=== PATIENT | male | born 1960 | race Caucasian/White ===

== ENCOUNTER 2016-11-18 14:56 | Emergency (ER) | payer SELFPAY ==
[~2016-11-18] VITALS: Ht 172.7 cm; Wt 77.2 kg
[~2016-11-18 14:56] MED LIST: TAB-TAB; VITA100T15; VITA100T5; Z.0.NO CURRENT MEDS
--- NOTE | 2016-11-18 15:30 | PD ---
HPI Chief Complaint: alcohol intoxication Time Seen by Provider: 15:30 Travel History International Travel<30 days: No Contact w/Intl Traveler<30days: No History of Present Illness HPI 56 year old male with PMH of COPD and chronic alcohol abuse presents to the ED via EMS for evaluation of bilateral knee pain and head pain after mechanical fall. The patient states that his right knee gave way today, causing him to fall on the left knee and strike his head. He is unsure if he lost consciousness. On presentation he complains of headache, dizziness, nausea and bilateral knee pain. He has been ambulatory since the accident. He is intoxicated and unable to provide any other meaningful history. PFSH Past Medical History Asthma: Yes Depression: Yes Psychiatric: Yes (ETOH ABUSE) Respiratory: Yes (COPD) Past Surgical History Genitourinary Surgery: Yes (URETHRAL DILATION) Oral Surgery: Yes Social History Alcohol Use: Yes (6 PK BEER / DAY, alcoholism) Tobacco Use: Yes (HE SMOKE 1 1/2 PACK DAILY.) Substance Use: No Allergies-Medications (Allergen,Severity, Reaction): Coded Allergies: No Known Allergies (Verified Allergy, Mild, 09/09/06) Reported Meds & Prescriptions Reported Meds & Active Scripts Active Reported Multivitamin (Multivitamins) 1 Tab Tab Vitamin C (Ascorbic Acid) 100 Mg Tab Vitamin B12 (Cyanocobalamin) 100 Mcg Tab No Current Meds (Miscellaneous Medication) Misc Review of Systems ROS Limitations: Intoxication Except as stated in HPI: all other systems reviewed are Neg Physical Exam Exam Limitations: Intoxication Narrative GENERAL: Well-nourished, well-developed shirtless, disheveled, intoxicated white male in no acute distress. SKIN: Focused skin assessment warm/dry. Multiple tattoos. There are superficial abrasions on the lateral aspect of the left knee. HEAD: Normocephalic. Atraumatic. No tenderness to palpation of the skull bones. No bony step-offs. EYES: No scleral icterus. No injection or drainage. PERRLA. NECK: Supple, trachea midline. No JVD or lymphadenopathy. No midline tenderness to palpation. Patient retains full, active range of motion of the neck. CARDIOVASCULAR: Regular rate and rhythm without murmurs, gallops, or rubs. 2+ DP and radial pulses bilaterally. RESPIRATORY: Breath sounds equal bilaterally. Mild end expiratory wheeze in the left lung long. No accessory muscle use. GASTROINTESTINAL: Abdomen soft, non-tender, nondistended. Active bowel sounds. MUSCULOSKELETAL: No cyanosis, or edema. Right lower extremity: Tender to palpation of the joint lines. Patient is able to flex to approximately 45 and extend beyond 0. States this is his normal. Left lower extremity: No tenderness to palpation or limitations to range of motion. NEURO: No focal neuro deficits. BACK: Nontender without obvious deformity. No CVA tenderness. Data Data Last Documented VS Vital Signs Date Time Temp Pulse Resp B/P Pulse Ox O2 Delivery O2 Flow Rate FiO2 11/18/16 19:42 78 16 123/77 98 11/18/16 15:58 [address] Cerv Spine W/O Contrast (11/18/16 15:51) Ct Brain W/O Iv Contrast(Rout) (11/18/16 15:51) Knee, Complete (4vws) (11/18/16 15:51) Ice/Cold Pack (11/18/16 15:51) Complete Blood Count With Diff (11/18/16 15:51) Comprehensive Metabolic Panel (11/18/16 15:51) Alcohol (Ethanol) (11/18/16 15:51) Urinalysis - C+S If Indicated (11/18/16 15:51) Iv Access Insert/Monitor (11/18/16 15:51) Sodium Chlor 0.9% 1000 Ml Inj (Ns 1000 M (11/18/16 16:00) Labs Laboratory Tests Test 11/18/16 11/18/16 15:50 16:50 Urine Color LIGHT-YELLOW Urine Turbidity CLEAR Urine pH 5.0 Urine Specific [place] 1.005 Urine Protein NEG mg/dL Urine Glucose (UA) NEG mg/dL Urine Ketones NEG mg/dL Urine Occult Blood NEG Urine Nitrite NEG Urine Bilirubin NEG Urine Urobilinogen LESS THAN 2.0 MG/DL Urine Leukocyte Esterase NEG Urine RBC LESS THAN 1 /hpf Urine WBC LESS THAN 1 /hpf Urine Mucus FEW /lpf Microscopic Urinalysis Comment CULT NOT INDICATED White Blood Count 7.2 TH/MM3 Red Blood Count 4.13 MIL/MM3 Hemoglobin 12.8 GM/DL Hematocrit 36.8 % Mean Corpuscular Volume 88.9 FL Mean Corpuscular Hemoglobin 30.9 PG Mean Corpuscular Hemoglobin 34.8 % Concent Red Cell Distribution Width 14.3 % Platelet Count 270 TH/MM3 Mean Platelet Volume 8.5 FL Neutrophils (%) (Auto) 61.5 % Lymphocytes (%) (Auto) 32.3 % Monocytes (%) (Auto) 3.4 % Eosinophils (%) (Auto) 2.3 % Basophils (%) (Auto) 0.5 % Neutrophils # (Auto) 4.4 TH/MM3 Lymphocytes # (Auto) 2.3 TH/MM3 Monocytes # (Auto) 0.2 TH/MM3 Eosinophils # (Auto) 0.2 TH/MM3 Basophils # (Auto) 0.0 TH/MM3 CBC Comment DIFF FINAL Differential Comment Sodium Level 141 MEQ/L Potassium Level 4.0 MEQ/L Chloride Level 107 MEQ/L Carbon Dioxide Level 22.7 MEQ/L Anion Gap 11 MEQ/L Blood Urea Nitrogen 14 MG/DL Creatinine 0.80 MG/DL Estimat Glomerular Filtration 101 ML/MIN Rate Random Glucose 59 MG/DL Calcium Level 8.2 MG/DL Total Bilirubin 0.2 MG/DL Aspartate Amino Transf 39 U/L (AST/SGOT) Alanine Aminotransferase 34 U/L (ALT/SGPT) Alkaline Phosphatase 81 U/L Total Protein 6.7 GM/DL Albumin 3.7 GM/DL Ethyl Alcohol Level 345 MG/DL MDM Medical Decision Making Medical Screen Exam Complete: Yes Emergency Medical Condition: Yes Differential Diagnosis Acute alcohol intoxication versus chronic alcoholism versus internal duration of the knee versus chronic knee pain versus ICH versus skull fracture versus other Narrative Course 56 year old male with PMH of COPD and chronic alcohol abuse presents to the ED via EMS for evaluation of bilateral knee pain and head pain after mechanical fall. The patient states that his right knee gave way today, causing him to fall on the left knee and strike his head. He is unsure if he lost consciousness. On presentation he complains of headache, dizziness, nausea and bilateral knee pain. He has been ambulatory since the accident. He is intoxicated and unable to provide any other meaningful history. Vitals reviewed. Physical exam reveals an intoxicated, shirtless, disheveled white male in no acute distress. Superficial abrasion over the lateral aspect the knee. Head is cephalic and atraumatic. There is no midline tenderness to palpation of the neck. He retained full, active range of motion. No appreciable M/R/G. There is mild end respiratory wheezes in the left lung long. Abdomen soft and nontender. The right lower extremity is tender to palpation of the joint lines with some limitation to ROM which the patient states is his normal. No focal neural deficits. CBC: Unremarkable CMP: Unremarkable UA: No culture indicated EtOH: 345 X-ray of the right knee: Unremarkable CT of the head and cervical spine: No acute findings Patient will be allowed to sleep it off then reevaluated before discharge. Upon reevaluation the patient is clothed, demonstrates a normal gait, asks for discharge and a bus pass. The patient is instructed to seek outpatient treatment for his chronic alcoholism. He is stable and discharged home. Diagnosis Primary Impression: Acute alcohol intoxication with alcoholism Qualified Code: F10.220 - Acute alcohol intoxication with alcoholism, uncomplicated Referrals: [facility] (Out patient) Additional Instructions: Seek outpatient treatment for your chronic alcoholism. Return to the ED for any urgent or emergent medical condition. Disposition: 01 DISCHARGE HOME Condition: Stable Shahida Mike November 18, 2016 15:30
[2016-11-18 15:58] VITALS: BP 102/62; PULSE 81; RESP 14; TEMP 97.7; O2SAT 94
[2016-11-18] MEDS ORDERED: SODIUM CHLOR 0.9% 1000 ML INJ 1,000 ML IV ONE (16:00)
--- NOTE | 2016-11-18 16:37 | RADRPT ---
EXAM DATE/TIME: 11/18/2016 16:07 [facility] COMPARISON: No previous studies available for comparison. INDICATIONS : Right knee pain after fall. MEDICAL HISTORY : None. SURGICAL HISTORY : None. ENCOUNTER: Initial ACUITY: 1 day PAIN SCORE: 10/10 LOCATION: Right knee. FINDINGS: Four view examination of the right knee demonstrates no evidence of fracture or dislocation. Bony mi neralization is normal. The articular surfaces are intact. The suprapatellar soft tissues have a no rmal configuration. CONCLUSION: Unremarkable examination of the right knee. Jorge Villegas MD on November 18, 2016 at 16:34 Board Certified Radiologist. This report was verified electronically.
[2016-11-18 16:46] LABS: BLOOD, URINE NEG (NEG); GLUCOSE,URINE NEG (NEG); KETONE, URINE NEG (NEG); MUCUS URINE FEW /lpf (OCC); NITRITE,URINE NEG (NEG); URINE COLOR LIGHT-YELLOW (YELLW/STRAW)
[2016-11-18 16:48] LABS: COMMENT (UR) CULT NOT INDICATED; CULTURE IF INDICATED CULT NOT INDICATED
[2016-11-18 17:15] LABS: AUTOMATED NEUTROPHIL # 4.4 TH/MM3 (1.8-7.7); BASOPHIL % 0.5 % (0.0-2.0); EOSINOPHIL # 0.2 TH/MM3 (0-0.4); EOSINOPHIL % 2.3 % (0.0-4.0); HEMATOCRIT 36.8 % (39.0-51.0); HEMO FLAGS DIFF FINAL; LYMPH % 32.3 % (9.0-44.0); LYMPHOCYTE # 2.3 TH/MM3 (1.0-4.8); MEAN CELL VOLUME 88.9 FL (80.0-100.0); MEAN CORPUSCULAR HEMOGLOBIN 30.9 PG (27.0-34.0); MEAN CORPUSCULAR HGB CONC 34.8 % (32.0-36.0); MONO % 3.4 % (0.0-8.0); NEUT % 61.5 % (16.0-70.0); PLATELET COUNT 270 TH/MM3 (150-450); RED BLOOD COUNT 4.13 MIL/MM3 (4.50-5.90); RED CELL DISTRIBUTION WIDTH 14.3 % (11.6-17.2); WHITE BLOOD COUNT 7.2 TH/MM3 (4.0-11.0)
--- NOTE | 2016-11-18 17:33 | RADRPT ---
EXAM DATE/TIME: 11/18/2016 17:21 [facility] COMPARISON: No previous studies available for comparison. INDICATIONS : Trauma, unknown injury. RADIATION DOSE: 36.81 CTDIvol (mGy) MEDICAL HISTORY : None SURGICAL HISTORY : None. ENCOUNTER: Initial ACUITY: 1 day PAIN SCALE: Non-responsive LOCATION: cranial TECHNIQUE: Multiple contiguous axial images were obtained of the head. Using automated exposure control and adj ustment of the mA and/or kV according to patient size, radiation dose was kept as low as reasonably a chievable to obtain optimal diagnostic quality images. FINDINGS: There is patchy mild diminished attenuation and deep white matter, nonspecific. No evidence of intrac ranial mass or hemorrhage. There is nothing to suggest acute infarction. The extracranial structures are benign intact. CONCLUSION: No acute cranial findings. Patchy mild white matter disease. Jorge Villegas MD on November 18, 2016 at 17:30 Board Certified Radiologist. This report was verified electronically.
--- NOTE | 2016-11-18 17:38 | RADRPT ---
EXAM DATE/TIME: 11/18/2016 17:21 [facility] COMPARISON: No previous studies available for comparison. INDICATIONS : Trauma, unknown injury. RADIATION DOSE: 25.85 CTDIvol (mGy) MEDICAL HISTORY : None SURGICAL HISTORY : None. ENCOUNTER: Initial ACUITY: 1 day PAIN SCALE: Non-responsive LOCATION: neck TECHNIQUE: Volumetric scanning of the cervical spine was performed. Multiplanar reconstructions in the sagittal, coronal and oblique axial planes were performed. Using automated exposure control and adjustment o f the mA and/or kV according to patient size, radiation dose was kept as low as reasonably achievable to obtain optimal diagnostic quality images. FINDINGS: Cervical spine alignment is notable for slight retrolisthesis C5 relative to C6. There is disc space narrowing at multiple levels and small vertebral body endplate osteophytes present. There is no evide nce of fracture. No significant bony canal or foraminal compromise is present. There are degenerative arthritic changes in the posterior facet joints at multiple levels. There is no evidence of paraspin al hematoma. CONCLUSION: Degenerative changes. No evidence of acute bony injury to cervical spine Jorge Villegas MD on November 18, 2016 at 17:34 Board Certified Radiologist. This report was verified electronically.
[2016-11-18 18:24] LABS: ALT (GPT) 34 U/L (12-78); ANION GAP 11 MEQ/L (5-15); AST (GOT) 39 U/L (15-37); BICARBONATE 22.7 MEQ/L (21.0-32.0); BLOOD UREA NITROGEN 14 MG/DL (7-18); CHLORIDE 107 MEQ/L (98-107); GLOMERULAR FILTRATION RATE 101 ML/MIN (>89); SODIUM (NA) 141 MEQ/L (136-145)
[2016-11-18 18:29] LABS: ALKALINE PHOSPHATASE 81 U/L (45-117); TOTAL BILIRUBIN ADULT 0.2 MG/DL (0.2-1.0)
[2016-11-18 19:42] VITALS: BP 123/77
== END 2016-11-18 19:55 | disposition home or self-care (01) ==
LOC: NEDAMB 14:56
DX: F10.229 Alcohol dependence with intoxication, unspecified (principal); S80.212A Abrasion, left knee, initial encounter; R51 Headache; R42 Dizziness and giddiness; R11.0 Nausea; W18.39XA Other fall on same level, initial encounter; Y93.9 Activity, unspecified; Y92.9 Unspecified place or not applicable; Y99.9 Unspecified external cause status
CPT/HCPCS: 70450; 72125; 73564; 80053; 80307; 81001; 85025; 96360; 99284; J7030

== ENCOUNTER 2017-03-05 21:24 | Emergency (ER) | payer OTHER ==
[~2017-03-05] VITALS: Ht 172.7 cm; Wt 75.0 kg
[2017-03-05 21:43] VITALS: BP 140/90; PULSE 80; RESP 16
--- NOTE | 2017-03-05 21:45 | PD ---
Physical Exam Date Seen by Provider: Mar 05, 2017 Time Seen by Provider: 21:42 Narrative 56 YOWM C/O BACK PAIN WITH L LEG GIVING OUT. NO BOWEL OR BLADDER CHANGES. PAIN 04/29. NO H/O BACK PAIN VS NOTED WAITING BED PLACEMENT MDM Supervised Visit with BO: Vikash Chambers Mar 05, 2017 21:45
[2017-03-05 21:55] VITALS: TEMP 98.6
[2017-03-05] MEDS ORDERED: NAPR500T PO (21:56)
[2017-03-05] MEDS ORDERED: BACL10TA PO (21:56)
--- NOTE | 2017-03-05 21:59 | PD ---
HPI Chief Complaint: Back/ Neck Pain or Injury Time Seen by Provider: 21:48 Travel History International Travel<30 days: No Contact w/Intl Traveler<30days: No Traveled to known affect area: No History of Present Illness HPI This is a 56-year-old male who presents for evaluation of lower back pain, radiating down the left leg. He reports that he has had this pain for 12 years but today the pain was worse. He reports that he also has a left knee meniscal injury which occasionally locks up and causes him to fall. He reports that this occurred today when he was walking and this seems to have exacerbated his chronic lower back pain. He denies any bowel or bladder incontinence, saddle anesthesia, abdominal pain, nausea or vomiting. He has no other complaints at this time. [facility] Past Medical History Asthma: Yes Depression: Yes Psychiatric: Yes (ETOH ABUSE) Respiratory: Yes (COPD) Past Surgical History Genitourinary Surgery: Yes (URETHRAL DILATION) Oral Surgery: Yes Social History Alcohol Use: Yes (6 PK BEER / DAY, alcoholism) Tobacco Use: Yes (HE SMOKE 1 1/2 PACK DAILY.) Substance Use: No Allergies-Medications (Allergen,Severity, Reaction): Coded Allergies: No Known Allergies (Verified , 03/05/17) Reported Meds & Prescriptions Reported Meds & Active Scripts Active Reported Multivitamin (Multivitamins) 1 Tab Tab Vitamin C (Ascorbic Acid) 100 Mg Tab Vitamin B12 (Cyanocobalamin) 100 Mcg Tab No Current Meds (Miscellaneous Medication) Misc Review of Systems Except as stated in HPI: all other systems reviewed are Neg Physical Exam Narrative GENERAL: Well-developed well-nourished male in no acute distress SKIN: Warm and dry. HEAD: Atraumatic. Normocephalic. EYES: Pupils equal and round. No scleral icterus. No injection or drainage. ENT: No nasal bleeding or discharge. Mucous membranes pink and moist. NECK: Trachea midline. No JVD. CARDIOVASCULAR: Regular rate and rhythm. No murmur appreciated. RESPIRATORY: No accessory muscle use. Clear to auscultation. Breath sounds equal bilaterally. GASTROINTESTINAL: Abdomen soft, non-tender, nondistended. Hepatic and splenic margins not palpable. No palpable pulsatile masses. No flank or periumbilical ecchymosis MUSCULOSKELETAL: No obvious deformities. There is no tenderness to palpation along the cervical thoracic or lumbar midline spine. 5 out of 5 muscle strength flexion, leg flexion and extension, dorsi and plantar flexion bilaterally. No lower extremity edema. NEUROLOGICAL: Awake and alert. No obvious cranial nerve deficits. Motor grossly within normal limits. Normal speech. PSYCHIATRIC: Appropriate mood and affect; insight and judgment normal. Data Data Last Documented VS Vital Signs Date Time Temp Pulse Resp B/P Pulse Ox O2 Delivery O2 Flow Rate FiO2 03/05/17 21:55 98.6 03/05/17 21:43 80 16 140/90 Orders Ketorolac Inj (Toradol Inj) (03/05/17 22:00) Orphenadrine Inj (Norflex Inj) (03/05/17 22:00) [facility] Medical Decision Making Medical Screen Exam Complete: Yes Emergency Medical Condition: Yes Medical Record Reviewed: Yes Differential Diagnosis Herniated nucleus pulposus, compression fracture, degenerative disc disease, lumbar strain, spasm, aortic dissection Narrative Course 56-year-old male who reports chronic lower back pain for 12 years, reports that today he was walking in his left knee locked up on him and caused him to fall. He now is worse lower back pain and usual and it radiates down the left leg. Physical examination is reassuring. He has no lower extremity weakness. His abdomen is soft and nontender. I don't suspect spinal cord injury or aortic dissection. I suspect an exacerbation of his chronic lower back pain with lumbosacral radiculopathy. The patient discharged with a short course of NSAIDs and muscle relaxants. Diagnosis Primary Impression: Lumbosacral radiculopathy Additional Instructions: Medication as needed. Follow-up with primary care physician next week. Return for any emergent medical conditions. Med/Other Pt SpecificInfo: Prescription(s) given Scripts Naproxen 500 Mg [id number] Mg PO BID 7 Days Ref 0 Prov:Talon Buck MD 03/05/17 Baclofen 10 Mg Tab10 Mg PO Q8HR PRN (MUSCLE SPASM) 7 Days Ref 0 Prov:Talon Buck MD 03/05/17 Disposition: 01 DISCHARGE HOME Condition: Stable Carlos Tong Mar 05, 2017 21:59
[2017-03-05] MEDS ORDERED: ORPHENADRINE INJ 60 MG/2 ML AMP IM ONE (22:00)
[2017-03-05] MEDS ORDERED: KETOROLAC TROMETHAMINE 60 MG/2 ML (IM) VIAL IM ONE (22:00)
== END 2017-03-05 22:15 | disposition home or self-care (01) ==
LOC: NEPK 21:24
DX: M54.17 Radiculopathy, lumbosacral region (principal); J44.9 Chronic obstructive pulmonary disease, unspecified; F17.210 Nicotine dependence, cigarettes, uncomplicated
CPT/HCPCS: 96372; 99284; J1885; J2360

== ENCOUNTER 2017-03-18 09:15 | Emergency (ER) | payer OTHER ==
[~2017-03-18 09:15] MED LIST changes: +BACL10TA PO; +NAPR500T PO; -TAB-TAB; -VITA100T15; -VITA100T5; -Z.0.NO CURRENT MEDS
[2017-03-18 09:20] VITALS: BP 139/83; PULSE 93; RESP 16; TEMP 98.4; O2SAT 98
--- NOTE | 2017-03-18 09:31 | PD ---
HPI . back pain Chief Complaint: Back/ Neck Pain or Injury Time Seen by Provider: 09:30 Travel History International Travel<30 days: No Contact w/Intl Traveler<30days: No Traveled to known affect area: No History of Present Illness HPI 56- year old male here complaining of left leg pain. The patient reports that he was seen here 1.5 weeks ago and was diagnosed with sciatica and was treated with an injection that he is not sure which one. He reports whatever they gave him at last visit works. He reports today he was on his way to the [place] to get his medications refilled. However, on his way his left leg gave out and he had to call [facility] in order to get medical help. He reports today the pain is radiating down from his neck through his back and down his left leg. He reports his pain is currently a 9/10. He denies any bowel or bladder dysfunction. No saddle anesthesia. PFSH Past Medical History Asthma: Yes Depression: Yes Psychiatric: Yes (ETOH ABUSE) Respiratory: Yes (COPD) Past Surgical History Genitourinary Surgery: Yes (URETHRAL DILATION) Oral Surgery: Yes Social History Alcohol Use: Yes (6 PK BEER / DAY, alcoholism) Tobacco Use: Yes (HE SMOKE 1 1/2 PACK DAILY.) Substance Use: No Allergies-Medications (Allergen,Severity, Reaction): Coded Allergies: No Known Allergies (Verified , 03/18/17) Reported Meds & Prescriptions Reported Meds & Active Scripts Active Reported [omnivent] Vitamin E 100 Unit Tab 100 Units PO DAILY Multi-Vitamin Daily (Multiple Vitamin) 1 Tab Tab 1 Tab PO DAILY Omeprazole 10 Mg Cap 10 Mg PO DAILY Review of Systems General / Constitutional: No: Fever, Chills, Weight Gain, Weight Loss, Other Eyes: No: Diploplia, Blurred Vision, Photophobia, Drainage, Redness, Foreign Body Sensation, Pain, Tearing, Blind Spots, Visual changes, Blindness, Other HENT: No: Headaches, Vertigo, Lightheadedness, Sore Throat, Rhinitis, Rhinorrhea, Congestion, Nosebleed, Neck Stiffness, Neck Pain, Masses, Gingival Bleeding, Dental Difficulties, Ear Discharge, Earache, Other Cardiovascular: No: Chest Pain or Discomfort, Palpitations, Irregular Rhythm, Tachycardia, Diaphoresis, Syncope, Dyspnea on exertion, Varicosities, Edema, Cyanosis, Varicosities, Phlebitis, Claudication, Other Respiratory: No: Cough, Shortness of Breath, Wheezing, Sneezing, Orthopnea, Hemoptysis, Stridor, Night Sweats, Pleuritic Pain, Other Gastrointestinal: No: Nausea, Vomiting, Diarrhea, Abdominal Pain, Hematemesis, Hematochezia, Constipation, Changes in Bowel Habits, Indigestion, Dysphagia, Loss of Appetite, Other Genitourinary: No: Urgency, Frequency, Dysuria, Nocturia, Hematuria, Decreased Urinary Output, Oliguria, Hesitancy, Dribbling, Incontinence, Pelvic Pain, Flank Pain, Dyspareunia, Discharge, Dysmenorrhea, Menorrhagia, Metorrhagia, Vaginal Bleeding, Other Musculoskeletal: Positive: Pain (Left leg pain), No: Myalgias, Arthralgias, Limited ROM, Weakness, Cramping, Edema, Atrophy, Other Skin: No Rash, No Itching, No Dryness, No Lumps, No Hives, No Change in Pigmentation, No Change in nails, No Alopecia, No Lesions, No Breast Lumps, No Breast Tenderness, No Breast Swelling, No Other Neurologic: No: Weakness, Dizziness, Syncope, Focal Abnormalities, Coordination Problem, Tremor, Ataxia, Headache, Change in Mentation, Slurred Speech, Paresthesia, Incontinence, Seizures, Sensory Disturbance, Other Psychiatric: No: Anxiety, Depression, Suicidal Ideations, Disorder of Thought, Mood Disorder, Substance Abuse, Homicidal Ideation, Other Endocrine: No: Heat Intolerance, Cold Intolerance, Polyuria, Polydipsia, Other Hematologic/Lymphatic: No: Easy Bruising, Lymph Node Enlargement, Other Physical Exam Narrative GENERAL: AAO x 3. NAD. SKIN: Warm and dry. HEAD: Atraumatic. Normocephalic. EYES: Pupils equal and round. No scleral icterus. No injection or drainage. ENT: No nasal bleeding or discharge. Mucous membranes pink and moist. NECK: Trachea midline. No JVD. CARDIOVASCULAR: Regular rate and rhythm. RESPIRATORY: No accessory muscle use. Clear to auscultation. Breath sounds equal bilaterally. No wheezes, rales or rhonchi. GASTROINTESTINAL: Visual inspection appears normal. MUSCULOSKELETAL: Extremities without clubbing, cyanosis, or edema. No obvious deformities. Full ROM in neck and leg. Ambulatory NEUROLOGICAL: Awake and alert. No obvious cranial nerve deficits. Motor grossly within normal limits. Five out of 5 muscle strength in the arms and legs. Normal speech. PSYCHIATRIC: Appropriate mood and affect; insight and judgment normal. Data Data Last Documented VS Vital Signs Date Time Temp Pulse Resp B/P (MAP) Pulse Ox O2 Delivery O2 Flow Rate FiO2 03/18/17 09:20 98.4 93 16 139/83 (101) 98 Orders Orders Orphenadrine Inj (Norflex Inj) (03/18/17 09:45) [facility]DM Medical Decision Making Medical Screen Exam Complete: Yes Emergency Medical Condition: Yes Medical Record Reviewed: Yes Differential Diagnosis Sciatica, Neck pain, Leg pain, Musculoskeletal injury Narrative Course 56 yr old male here with c/o back pain. Exam is unremarkable. He is able to move all joints and ambulatory. I have provided him norflex. [facility] Diagnosis Primary Impression: Lumbosacral radiculopathy Referrals: [place] [facility] Patient Instructions: General Instructions Additional Instructions: Follow up with your primary care doctor for further refills. Med/Other Pt SpecificInfo: No Change to Meds Disposition: 01 DISCHARGE HOME Condition: Stable Bethany Chairez Mar 18, 2017 09:31
[2017-03-18] MEDS ORDERED: ORPHENADRINE INJ 60 MG/2 ML AMP IM ONE (09:45)
[2017-03-18] MEDS ORDERED: VITA100T65 PO (09:48)
[2017-03-18] MEDS ORDERED: OMEP10CA PO (09:48)
[2017-03-18] MEDS ORDERED: [UNRECOGNIZED DRUG - OTHER] (09:48)
[2017-03-18] MEDS ORDERED: MULT-65 PO (09:48)
== END 2017-03-18 10:14 | disposition home or self-care (01) ==
LOC: NEPK 09:15
DX: M54.17 Radiculopathy, lumbosacral region (principal); M54.2 Cervicalgia; F17.200 Nicotine dependence, unspecified, uncomplicated; Z87.09 Personal history of other diseases of the respiratory system; Z86.59 Personal history of other mental and behavioral disorders
CPT/HCPCS: 96372; 99284; J2360